=== PATIENT | male | born 1955 | race Caucasian/White ===

== ENCOUNTER 2022-10-23 12:52 | Emergency (ER) | payer OTHER ==
[~2022-10-23] VITALS: Ht 167.6 cm; Wt 63.5 kg
[2022-10-23] MEDS ORDERED: GLUMETZA1000 MG (13:02)
== END 2022-10-23 15:16 | disposition left against medical advice (07) ==
LOC: ER 12:52
DX: R42 Dizziness and giddiness (principal); E11.65 Type 2 diabetes mellitus with hyperglycemia; Z79.84 Long term (current) use of oral hypoglycemic drugs; Z20.822 Contact with and (suspected) exposure to COVID-19

== ENCOUNTER 2022-10-25 14:38 | Emergency (ER) | payer OTHER ==
[~2022-10-25] VITALS: Ht 182.9 cm; Wt 63.5 kg
[~2022-10-25 14:38] MED LIST: GLUMETZA1000 MG
== END 2022-10-25 22:28 | disposition home or self-care (01) ==
LOC: ER 14:38
DX: R42 Dizziness and giddiness (principal); I10 Essential (primary) hypertension

== ENCOUNTER 2022-10-28 14:40 | Emergency (ER) | payer OTHER ==
[~2022-10-28] VITALS: Ht 170.2 cm; Wt 72.6 kg
== END 2022-10-28 16:33 | disposition left against medical advice (07) ==
LOC: ER 14:40
DX: Z53.21 Procedure and treatment not carried out due to patient leaving prior to being seen by health care provider (principal)